=== PATIENT | male | born 1985 | race Caucasian/White ===

== ENCOUNTER 2017-07-04 21:56 | Emergency (ER) | payer OTHER ==
[2017-07-04 23:03] LABS: Anion Gap 16 mmol/L; Blood Urea Nitrogen 11 mg/dL (9-20); Carbon Dioxide 27 mmol/L (22-30); Chloride 99.7 mmol/L (98-107); Glucose 103 mg/dL (75-100); Potassium 4.4 mmol/L (3.6-5.0); Sodium 138 mmol/L (137-145)
[2017-07-04 23:16] LABS: Basophils % (Auto) 0.4 % (0.0-1.8); Eosinophils % (Auto) 2.1 % (0.0-4.3); Hematocrit 44.7 % (35.5-45.6); Mean Corpuscular HGB Conc 31 % (32-34); Mean Corpuscular Volume 74 fl (84-94); Platelet Count 147 K/mm3 (140-440); Red Blood Count 6.04 M/mm3 (3.65-5.03); Red Cell Distribution Width 12.9 % (13.2-15.2); White Blood Count 8.2 K/mm3 (4.5-11.0)
[2017-07-04 23:20] LABS: Mean Corpuscular Hemoglobin 23 pg (28-32)
[2017-07-05] MEDS ORDERED: ANTIVERT PO ONE (03:03)
[2017-07-05 04:55] VITALS: BP 113/71
--- NOTE | 2017-07-05 05:41 | Emergency Department Report ---
HPI - General Chief Complaint: Neuro Symptoms/Deficit Time Seen by Provider: 07/05/17 02:54 - HPI HPI: This is a 32-year-old male presents to the emergency department with a complaint of some dizziness and/or vertigo-like symptoms that occurred just prior to presentation. He began feeling nauseous and had tingling in the arms and legs. He laid down on the ground and felt like the room was spinning even worse and then had trouble getting back up because of it. His brother helped him get up and drove him to the ER for further evaluation. He did not take anything for symptoms prior to presentation. He denies any headache, vision change, slurred speech, chest pain, fever. No recent travel or sick contacts at home. He does not have a primary care physician. He does not have any past medical history. ED Past Medical Hx - Past Medical History Previous Medical History?: No - Surgical History Past Surgical History?: No - Social History Smoking Status: Never Smoker Substance Use Type: None - Medications Home Medications: Home Medications Medication Instructions Recorded Confirmed Last Taken Type Meclizine [Antivert] 25 mg PO TID PRN #16 tablet 07/05/17 Unknown Rx ED Review of Systems ROS: Stated complaint: BILATERAL LEG NUMBNESS/NAUSEA Other details as noted in HPI Comment: All other systems reviewed and negative Constitutional: denies: chills, fever Eyes: denies: eye pain, eye discharge, vision change ENT: denies: ear pain, throat pain Respiratory: no symptoms reported Cardiovascular: denies: chest pain, palpitations Genitourinary: denies: urgency, dysuria Musculoskeletal: denies: back pain, joint swelling, arthralgia Skin: denies: rash, lesions Neurological: paresthesias, vertigo. denies: headache Physical Exam - Physical Exam Vital Signs: Vital Signs 07/04/17 07/05/17 22:13 04:54 Temperature 98.5 F 98 F Pulse Rate 70 87 Respiratory 16 18 Rate Blood Pressure 122/69 Blood Pressure 102/69 113/71 [Left] O2 Sat by Pulse 100 99 Oximetry Physical Exam: GENERAL: The patient is well-developed well-nourished. HEENT: Normocephalic. Atraumatic. Extraocular motions are intact. Patient has moist mucous membranes. Pupils equal reactive to light bilaterally. There is fatigable horizontal nystagmus. NECK: Supple. Trachea is midline. CHEST/LUNGS: Clear to auscultation. There is no respiratory distress noted. HEART/CARDIOVASCULAR: Regular. There is no tachycardia. There is no gallop rub or murmur. ABDOMEN: Abdomen is soft, nontender. Patient has normal bowel sounds. There is no abdominal distention. SKIN: Skin is warm and dry. NEURO: The patient is awake, alert, and oriented. The patient is cooperative. The patient has no focal neurologic deficits. The patient has normal speech. No pronator drift. No dysmetria. MUSCULOSKELETAL: There is no tenderness or deformity. There is no limitation range of motion. There is no evidence of acute injury. Muscle strength 5 out of 5 for upper and lower extremities bilaterally. ED Course Vital Signs 07/04/17 07/05/17 22:13 04:54 Temperature 98.5 F 98 F Pulse Rate 70 87 Respiratory 16 18 Rate Blood Pressure 122/69 Blood Pressure 102/69 113/71 [Left] O2 Sat by Pulse 100 99 Oximetry ED Medical Decision Making - Lab Data Result diagrams: 07/04/17 22:32 07/04/17 22:32 - EKG Data -: EKG Interpreted by Tn EKG shows normal: sinus rhythm, axis, intervals, QRS complexes, ST-T waves Rate: normal - EKG Data When compared to previous EKG there are: previous EKG unavailable Interpretation: normal EKG - Medical Decision Making 32-year-old presents with some dizziness and/or vertigo-like symptoms as well as some paresthesias. On physical exam there is no focal, motor or sensory deficits and his cranial nerves are intact. EKG does not show any ST elevation [place], ischemia or dysrhythmia. Labs are mostly unremarkable and do not show any etiology of the patient's symptoms. He was given a dose of Antivert and upon reevaluation he says he is feeling much better and the dizziness and vertigo has completely resolved. He has been seen ambulatory in the emergency department and appears stable. He'll be discharged home with a prescription for Antivert and multiple referrals for primary care. He will return to the ER for any worsening of his symptoms or any acute distress. - Differential Diagnosis vertigo, orthostatic hypotension, vasovagal Critical Care Time: No Critical care attestation.: If time is entered above; I have spent that time in minutes in the direct care of this critically ill patient, excluding procedure time. ED Disposition Clinical Impression: Dizziness, Vertigo, Paresthesias Disposition: DC- TO HOME OR SELFCARE Is pt being admited?: No Condition: Stable Instructions: Dizziness (ED), Lightheadedness (ED), Vertigo (ED), Paresthesia ( ED) Additional Instructions: Please follow-up with a primary care physician in the next few days. Return to the emergency department with any worsening of your symptoms or any acute distress. Prescriptions: Meclizine [Antivert] 25 mg PO TID PRN #16 tablet PRN Reason: Vertigo Referrals: PRIMARY CAREMD [Primary Care Provider] - 3-5 Days RAMIRO BATEMAN MD [Staff Physician] - 3-5 Days [facility] [Outside] - 3-5 Days [facility] [Outside] - 3-5 Days [facility] [Outside] - 3-5 Days Time of Disposition: 05:43
== END 2017-07-05 06:34 | disposition home or self-care (01) ==
LOC: ED 21:56
DX: R42 Dizziness and giddiness (principal); R20.0 Anesthesia of skin
CPT/HCPCS: 36415; 80048; 84443; 84484; 85025; 93005; 93010